=== PATIENT | female | born 1995 | race Caucasian/White ===

== ENCOUNTER 2017-08-11 09:50 | Emergency (ER) | payer MEDICAID ==
[2017-08-11 10:33] LABS: Urine Appearance Cloudy; Urine Color Orange
--- NOTE | 2017-08-11 11:08 | ED ---
GI/ HPI - HPI Summary HPI Summary: Patient presents with vaginal burning and irritation times six days. Tried AZO w/ minimal relief. She denies urinary urgency, frequency and no pain or pressure in her pubic region. She also denies fever, chills, nausea, vomiting, diarrhea. She does have some mild lower back pain which she believes happened from working yesterday - better today. She is a history of UTI's after intercourse (3 in her lifetime) however has never been tested for bacterial vaginal infections (ie. STD's, non-STD's). She has unprotected vaginal sex with her male partner who lives back home in [place] - her last session was Sunday. She does not plan to get however she is not actively preventing this with family planning method, condoms, control, etc. She reports she's discussed this option with her PCP in the past who refrains from treating her. Patient denies smoking, history of clotting disorder, migraine with aura. She is unsure why her primary care doctor will not prescribe her oral control pills. - History of Current Complaint Chief Complaint: EDFlankPain Time Seen by Provider: 08/11/17 09:59 Stated Complaint: GI ISSUE Hx Obtained From: Patient Pain Intensity: 4 - Allergy/Home Medications Allergies/Adverse Reactions: Allergies Allergy/AdvReac Type Severity Reaction Status Date / Time No Known Allergies Allergy Verified 08/11/17 09:54 PMH/Surg Hx/FS Hx/Imm Hx Previously Healthy: Yes Endocrine/Hematology History: Denies: Hx Anticoagulant Therapy, Hx Blood Disorders, Hx Thyroid Disease, Hx Unexplained Bleeding, Hx Coagulopothy Neurological History: Denies: Hx Migraine - Immunization History Immunizations Up to Date: Yes Infectious Disease History: No Infectious Disease History: Denies: Traveled Outside the [place] in Last 30 Days - Family History Known Family History: Positive: None - Social History Occupation: Student Lives: Alone Alcohol Use: None Hx Substance Use: No Substance Use Type: Reports: None, Marijuana - occasionally Hx Tobacco Use: No Smoking Status (MU): Never Smoked Tobacco Review of Systems Constitutional: Negative Negative: Sore Throat Cardiovascular: Negative Respiratory: Negative Gastrointestinal: Negative Positive: see HPI Musculoskeletal: Negative Skin: Negative Neurological: Negative Psychological: Normal All Other Systems Reviewed And Are Negative: Yes Physical Exam Triage Information Reviewed: Yes Vital Signs On Initial Exam: Initial Vitals Temp Pulse Resp BP Pulse Ox 97.4 F 69 16 118/72 99 08/11/17 09:55 08/11/17 09:55 08/11/17 09:55 08/11/17 09:55 08/11/17 09:55 Vital Signs Reviewed: Yes Appearance: Positive: Well-Appearing, No Pain Distress, Well-Nourished Skin: Positive: Warm, Skin Color Reflects Adequate Perfusion, Dry Head/Face: Positive: Normal Head/Face Inspection Eyes: Positive: Normal, EOMI ENT: Positive: Hearing grossly normal, Pharynx normal - mucosa moist Neck: Positive: Supple Respiratory/Lung Sounds: Positive: Breath Sounds Present Cardiovascular: Positive: Normal, RRR Abdomen Description: Positive: Nontender, No Organomegaly, Soft. Negative: CVA Tenderness (R), CVA Tenderness (L), Distended, Guarding Bowel Sounds: Positive: Present Pelvic Exam: Positive: External Exam Normal - orange tinted vaginal mucosa - pt took AZO, Speculum Exam Normal, No Cerv. Motion Tender, No Masses, Discharge - scant bloody/mucousy d/c; + whiff test Musculoskeletal: Positive: Normal, Strength/ROM Intact Neurological: Positive: Normal, Sensory/Motor Intact, Alert, Oriented to Person Place, Time, CN Intact II-III Psychiatric: Positive: Normal Diagnostics - Vital Signs Vital Signs Temp Pulse Resp BP Pulse Ox 08/11/17 09:55 97.4 F 69 16 118/72 99 - Laboratory Lab Results: Lab Results 08/11/17 Range/Units 10:13 Urine Color [place] Urine Appearance Cloudy Urine pH TNP Ur Specific [place] TNP Urine Protein TNP Urine Ketones TNP Urine Blood TNP Urine Nitrate TNP Urine Bilirubin TNP Urine Urobilinogen TNP Ur Leukocyte Esterase TNP Urine WBC (Auto) 3+(>20/hpf) A (Absent) Urine RBC (Auto) 3+(>10/hpf) A (Absent) Ur Squamous Epith Cells Present A (Absent) Urine Bacteria Absent (Absent) Urine Glucose TNP Urine Ascorbic Acid TNP Lab Statement: Any lab studies that have been ordered have been reviewed, and results considered in the medical decision making process. GIGU Course/Dx - Course Course Of Treatment: Patient presents with vaginal irritation and pain in the vaginal area with urination. She admits to unprotected intercourse and has not had any STD/non-STD testing. She agrees to pelvic exam today with vicap collection - witnessed by nurseMarilyn. Difficult to assess urine for UTI is patient is taken AZO. Her clinical symptoms and physical exam are more in aligment with BV and so will start treatment today. We also had a conversation about control options and safe sex methods. Patient agrees to follow-up at [facility] this week to discuss options of control in greater detail and agrees to refrain from unprotected intercourse in the meantime. Reviewed danger s/sx of when to return to ED. Pt agrees w/ plan. NOTE: HCG NEG - Diagnoses Provider Diagnoses: Vaginitis Discharge - Sign-Out/Discharge Documenting (check all that apply): Discharge/Admit/Transfer - Discharge Plan Condition: Stable Disposition: HOME Prescriptions: metroNIDAZOLE VAGINAL 0.75%* 1 applic VAGINAL BEDTIME #1 tube Patient Education Materials: Safe Sex (ED), Vaginitis (ED) [facility], [Z.CONVERSION PROVIDER TYPE] - Additional Instructions: You are being treated today for clinical presentation of bacterial vaginosis however your final test results will be more definitive. These should return in the next few days and you will receive a call if additional medication is necessary. We also discussed the importance of safe sex including a combination of condoms to prevent STD's and for hormonal control to prevent . Please follow [facility] with [facility] this week to discuss options and implement treatment. In the meantime, use condoms all the time, every time to prevent infection and . *If you develop fever, chills, vomiting, worsening of symptoms or abdominal pain , return to the emergency department. - Billing Disposition and Condition Condition: STABLE Disposition: HOME
[2017-08-11 11:40] VITALS: BP 0/0
--- NOTE | 2017-08-12 08:20 | PN ---
Progress Note - Progress Note Date of Service: 08/11/17 Note: positive [place]rella Placed on metronidazole prior to discharge Nothing further this time
== END 2017-08-11 11:38 | disposition home or self-care (01) ==
LOC: ED 09:50
DX: N76.0 Acute vaginitis (principal)
CPT/HCPCS: 36415; 81003; 81015; 84702; 87086; 87480; 87491; 87510; 87591; 87661; 99283